=== PATIENT | female | born 1960 | race Caucasian/White ===

== ENCOUNTER → 2016-02-20 | Outpatient (CLI) | payer BC ==
--- NOTE | 2016-02-20 14:28 | DX ---
PA and Lateral Chest Clinical Indications: Preoperative evaluation in a 55-year-old female; comparison previous chest beto dy November 16, 2012. Findings: The lungs are clear, and no masses are found. Focal right upper lobe opacity could reflect scar or a granuloma and is unchanged. The heart and pulmonary vessels are normal. There are no pleu ral effusions and no pneumothorax. The bones are unremarkable for this age. Impression: Chest negative for acute abnormality with no contraindication to surgery identified.
== END ==
LOC: FLAB 11:36
PROVIDERS: ATTEND Physician Assistant
DX: Z01.811 Encounter for preprocedural respiratory examination (principal)